=== PATIENT | male | born 2000 | race Two or more races ===

== ENCOUNTER 2022-02-10 07:03 | Outpatient (CLI) | payer OTHER | END 2022-02-10 23:00 | disposition home or self-care (01) | LOC: LAB 07:03 | PROVIDERS: ATTEND Obstetrics & Gynecology | DX: Z20.828 Contact with and (suspected) exposure to other viral communicable diseases (principal); Z20.818 Contact with and (suspected) exposure to other bacterial communicable diseases ==

== ENCOUNTER 2023-02-08 08:50 | Outpatient (CLI) | payer OTHER | END 2023-02-08 09:00 | disposition home or self-care (01) | LOC: PPH VACUNA 08:50 | PROVIDERS: ATTEND Emergency Medicine Pediatric Emergency Medicine | DX: Z23 Encounter for immunization (principal) | CPT/HCPCS: 90686; G0008 ==